=== PATIENT | female | born 1960 | race Caucasian/White ===

== ENCOUNTER → 2019-02-27 | Outpatient (CLI) | payer OTHER ==
--- NOTE | 2019-02-27 13:18 | Diagnostic Imaging Report ---
PROCEDURE: CT abdomen and pelvis without contrast. TECHNIQUE: Multiple contiguous axial images were obtained through the abdomen and pelvis without the use of intravenous contrast. Auto Exposure Controls were utilized during the CT exam to meet ALARA standards for radiation dose reduction. INDICATION: Hematuria. COMPARISON: No comparison is available. FINDINGS: Limited views of the lower thorax are normal. The liver is normal without focal lesion. The gallbladder contains stones. No cholecystitis. The pancreas is normal. There are calcified granulomas in the spleen. The adrenal glands are normal. No right-sided renal stones. No hydronephrosis. There is a 14 mm renal pelvic stone on the left. No hydronephrosis. There is some mild peripelvic stranding on the left. The urinary bladder is normal. No pelvic mass is seen. There are no dilated loops of large or small bowel. The appendix has likely been resected. No abdominal or pelvic lymphadenopathy. The abdominal aorta is normal in caliber. There are no suspicious osseous lesions. IMPRESSION: Nonobstructing 14 mm left renal pelvic stone. Mild stranding about the renal pelvis on the left may reflect some inflammation related to the stone but there is no hydronephrosis. Dictated by: Dictated on workstation # [id number]
== END ==
LOC: RAD 09:00
PROVIDERS: ATTEND Urology
DX: N20.0 Calculus of kidney (principal)
CPT/HCPCS: 74176

== ENCOUNTER 2019-03-15 05:36 | Outpatient (CLI) | payer OTHER ==
[~2019-03-15] VITALS: Ht 172.7 cm; Wt 81.2 kg
[2019-03-15] MEDS ORDERED: METO-395 PO (14:56)
[2019-03-15] MEDS ORDERED: METF-399 PO (14:56)
[2019-03-15] MEDS ORDERED: ASPI-586 PO (14:56)
[2019-03-15] MEDS ORDERED: ATOR10TA66 PO (14:56)
[2019-03-15] MEDS ORDERED: CITA10TA12 PO (14:56)
== END 2019-03-15 15:03 | disposition home or self-care (01) ==
LOC: PREOP 05:36
PROVIDERS: ATTEND Urology
DX: Z01.818 Encounter for other preprocedural examination (principal)

== ENCOUNTER 2019-03-27 06:01 | Day surgery (SDC) | payer OTHER ==
[2019-03-27] VITALS (11 sets, daily range): BP systolic 113–152; BP diastolic 61–93
[~2019-03-27] VITALS: Ht 172.7 cm; Wt 81.3 kg
[~2019-03-27 06:01] MED LIST: ASPI-586 PO; ATOR10TA66 PO; CITA10TA12 PO; METF-399 PO; METO-395 PO
[2019-03-27] MEDS ORDERED: LIDOCAINE PF 2% 5 ML (XYLOCAINE) VIAL ONE (06:33)
[2019-03-27] MEDS ORDERED: proPOfol 200 MG/20 ML (DIPRIVAN) VIAL IV ONE (06:33)
[2019-03-27] MEDS ORDERED: MIDAZOLAM 2 MG/2 ML (VERSED) VIAL ONE (06:33)
[2019-03-27] MEDS ORDERED: fentaNYL INJECTION 100 MCG/2 ML AMP ONE (06:33)
[2019-03-27] MEDS ORDERED: ONDANSETRON 4 MG/2 ML (SDV) Z0FRAN ONE (06:33)
[2019-03-27] MEDS ORDERED: SEVOFLURANE (ULTANE) 15 ML INHAL SOLN ONE ×3 (06:33→08:04)
[2019-03-27] MEDS ORDERED: LACTATED RINGERS 1,000 ML IV PRN (06:35)
[2019-03-27] MEDS ORDERED: FUROSEMIDE 40 MG/4 ML INJ (LASIX) ONE (06:37)
[2019-03-27] MEDS ORDERED: KETOROLAC 30 MG/ML VIAL ONE (06:37)
[2019-03-27] MEDS ORDERED: cefTRIAXone FOR IV USE 1,000 MG in WATER (STERILE) FOR INJECTION 10 ML IV ONE (06:45)
--- NOTE | 2019-03-27 07:11 | Progress Note-Pre Operative ---
Pre-Operative Progress Note H&P Reviewed The H&P was reviewed, patient examined and no changes noted. Date Seen by Provider: Mar 27, 2019 Time Seen by Provider: 07:11 Date H&P Reviewed: Mar 27, 2019 Time H&P Reviewed: 07:11 Pre-Operative Diagnosis: LT RENAL STONE DIANA HOUSE MD Mar 27, 2019 07:11
--- NOTE | 2019-03-27 07:34 | Discharge Inst-Urology ---
Discharge Inst-Urology Reconcile Patient Problems Problems Reviewed?: Yes Patient Instructions/Follow Up Plan/Assessment/Instructions Please make appointment to been seen in office Monday 04/09, KUB prior to it. KUB on way home Post ESWL instructions Increase oral fluids for 48 hours and then as needed. Diet and Activity as tolerated. If questions or concerns contact your physician Or seek help at emergency department. DIANA HOUSE MD Mar 27, 2019 07:34
--- NOTE | 2019-03-27 07:35 | Progress Note-Post Operative ---
Post-Operative Progess Note Surgeon (s)/Cash Control Specialist (s) Surgeon DIANA HOUSE MD Cash Control Specialist: NONE Pre-Operative Diagnosis LT RENAL STONE Post-Operative Diagnosis SAME Procedure & Operative Findings Date of Procedure 03/27/19 Procedure Performed/Findings LT ESWL Anesthesia Type GENERAL Estimated Blood Loss Estimated blood loss (mL): NONE Specimens/Packing Specimens Removed NONE Packing: NONE DIANA HOUSE MD Mar 27, 2019 07:35
[2019-03-27] MEDS ORDERED: morphine INJ 10 MG/ML 1ML (SYR OR VIAL) IVP ONE (08:15)
[2019-03-27] MEDS ORDERED: MEPERIDINE (DEMEROL) INJ 50 MG/ML IVP ONE (08:15)
[2019-03-27] MEDS ORDERED: ONDANSETRON 4 MG/2 ML (SDV) Z0FRAN IVP PRN (08:15)
--- NOTE | 2019-03-27 08:39 | OPERATIVE REPORT ---
DATE OF SERVICE: 03/27/2019 PREOPERATIVE DIAGNOSIS: Left renal stone. POSTOPERATIVE DIAGNOSIS: Left renal stone. OPERATION PERFORMED: Left ESWL. SURGEON: Dino House MD ANESTHESIA: General. COMPLICATIONS: None. DESCRIPTION OF PROCEDURE: Under satisfactory general anesthesia, the patient in supine position on the ESWL table, the left renal stone was localized. Shocks were delivered at kV of 5. A total of 3000 shocks were delivered. The patient received 40 mg of Lasix, 30 mg of Toradol IV at the end of the procedure. She tolerated the procedure and anesthesia well and was sent to recovery room in stable condition. Job ID: [id number] DocumentID: [id number] Dictated Date: 03/27/2019 07:58:57 Commissary Helper Date: 03/27/2019 08:38:19 Dictated By: DINO HOUSE MD
--- NOTE | 2019-03-27 08:51 | Diagnostic Imaging Report ---
INDICATION: Nephrolithiasis. FINDINGS: Bowel gas pattern is nonspecific. There is large stone projecting over the left kidney. The osseous structures are unremarkable. IMPRESSION: Large stone measuring greater than a centimeter projected over the left kidney. Dictated by: Dictated on workstation # [id number]
[2019-03-27] MEDS ORDERED: NITR-65 PO (09:43)
[2019-03-27] MEDS ORDERED: HYDR-3870 PO (09:43)
[2019-03-27] MEDS ORDERED: TAMS0.4C98 PO (09:43)
--- NOTE | 2019-03-27 11:15 | Diagnostic Imaging Report ---
Indication: Status post left lithotripsy. Time of exam 10:04 AM Correlation is made with prior radiograph earlier the same day. There appears to be some fragmentation of the large stone in the region of the left renal pelvis since earlier today, status post lithotripsy. No definite calculi along the expected location of the left ureter is seen. No right-sided urinary tract calculi are seen. The bowel gas pattern is unremarkable. Impression: Fragmentation of left renal calculus, status post lithotripsy. Dictated by: Dictated on workstation # [id number]
--- NOTE | 2019-03-27 13:41 | Anesthesia-General Post-Op ---
General Patient Condition Mental Status/LOC: Same as Preop Cardiovascular: Satisfactory Nausea/Vomiting: Absent Respiratory: Satisfactory Pain: Controlled Complications: Absent Post Op Complications Complications None Follow Up Care/Instructions Patient Instructions None needed. Anesthesia/Patient Condition Patient Condition Patient is doing well, no complaints, stable vital signs, no apparent adverse anesthesia problems. No complications reported per nursing. SREEKANTH RANGEL CRNA Mar 27, 2019 13:41
== END 2019-03-27 10:20 | disposition home or self-care (01) ==
LOC: SDC 06:01
PROVIDERS: ATTEND Urology
DX: N20.0 Calculus of kidney (principal); E78.5 Hyperlipidemia, unspecified; I10 Essential (primary) hypertension; E11.9 Type 2 diabetes mellitus without complications; F41.8 Other specified anxiety disorders; Z86.73 Personal history of transient ischemic attack (TIA), and cerebral infarction without residual deficits; Z88.2 Allergy status to sulfonamides; Z79.891 Long term (current) use of opiate analgesic; Z79.84 Long term (current) use of oral hypoglycemic drugs; Z79.899 Other long term (current) drug therapy
CPT/HCPCS: 74018; 87081

== ENCOUNTER → 2019-04-09 | Outpatient (CLI) | payer OTHER ==
[~2019-04-09] MED LIST changes: +HYDR-3870 PO; +NITR-65 PO; +TAMS0.4C98 PO
--- NOTE | 2019-04-09 15:16 | Diagnostic Imaging Report ---
INDICATION: Followup left sided lithotripsy. TIME OF EXAMINATION: 2:48 PM. COMPARISON: 03/27/2019. FINDINGS: Vague calcific densities overlie the left mid and lower pole. The overall stone burden overlying the left kidney appears to be reduced since the prior study. There are some questionable densities adjacent to the left transverse processes of L3 and L4. The possibility of ureteral calculi cannot be entirely excluded. No other suspicious abnormalities are seen. The bowel gas pattern is unremarkable. IMPRESSION: Decrease in the left renal stone burden since the prior abdominal radiograph 2 weeks earlier. There are questionable mid left ureteric calculi. No other abnormality is seen. Dictated by: Dictated on workstation # [id number]
== END ==
LOC: RAD 14:27
PROVIDERS: ATTEND Urology
DX: N20.0 Calculus of kidney (principal); Z98.890 Other specified postprocedural states
CPT/HCPCS: 74018

== ENCOUNTER 2019-04-14 08:31 | Outpatient (RCR) | payer OTHER | END 2019-07-08 | disposition home or self-care (01) | LOC: LAB 08:31 | PROVIDERS: ATTEND Urology | DX: N20.0 Calculus of kidney (principal) | CPT/HCPCS: 36415; 82140; 82340; 82507; 82570; 83735; 83945; 83986; 84105; 84133; 84300; 84392; 84560; 88300 ==

== ENCOUNTER → 2020-05-07 | Outpatient (CLI) | payer BC, OTHER ==
[~2020-05-07] MED LIST changes: -METO-395 PO; +MTP100TCR PO; -TAMS0.4C98 PO; +TMSL.4C PO
--- NOTE | 2020-05-07 18:12 | Diagnostic Imaging Report ---
INDICATION: History of stones. COMPARISON: 04/09/2019. TECHNIQUE: Single radiograph of the abdomen dated May 07, 2020. FINDINGS: A 4 mm calcification is noted immediately adjacent, and possibly even associated with, the tip of the left L3 transverse process. This appears stable from the prior examination. New calcifications are identified within the left aspect of the pelvis, measuring up to 7 mm. No suspicious calcification overlying the left renal shadow with possible punctate calcification overlying the central right renal shadow. Stool is identified throughout the colon. No evidence of bowel obstruction. No free air. No acute osseous abnormality. IMPRESSION: 1. 4 mm calcification adjacent to the tip of the left L3 transverse process is again identified and stable from prior examination one year prior. This is favored to simply relate to the transverse process, itself, though ureterolith is not excluded. 2. New 7 mm calcifications within the left pelvis. This is favored to relate to phleboliths, though given location, these could relate to underlying distal ureterolithiasis. CT could be obtained for further evaluation. Alternatively, ultrasound could be obtained to evaluate for any underlying hydronephrosis. 3. Probable punctate right renal calculus. Dictated by: Dictated on workstation # [id number]
== END ==
LOC: RAD 16:36
PROVIDERS: ATTEND Urology
DX: Z87.442 Personal history of urinary calculi (principal)
CPT/HCPCS: 74018

== ENCOUNTER → 2020-05-14 | Outpatient (CLI) | payer BC ==
[~2020-05-14] MED LIST changes: +ASPI-999 PO; +GLIP5TAB13 PO
--- NOTE | 2020-05-14 13:17 | Diagnostic Imaging Report ---
PROCEDURE: CT urinary tract, rule out kidney stone. TECHNIQUE: Multiple contiguous axial images were obtained through the abdomen and pelvis without the use of intravenous contrast. Auto Exposure Controls were utilized during the CT exam to meet ALARA standards for radiation dose reduction. INDICATION: Abdominal pain and history of kidney stones. COMPARISON: Correlation is made with prior CT from 02/27/2019 as well as KUB from 05/07/2020. FINDINGS: The lung bases are clear. No discrete liver mass is identified. There is a stone within the gallbladder. No biliary ductal dilatation is seen. The pancreas and spleen are unremarkable. No adrenal mass is identified. Right kidney is without evidence of calculi. There is no hydronephrosis or ureteral calculi on the right. On the left, there is moderate hydroureteronephrosis. The dilated left ureter is traced into the pelvis where there is an approximately 5 mm calculus projecting just distal to the SI joints. The ureter distal to this location is normal caliber. No bladder calculi are seen. Aorta is non-aneurysmal. Bowel loops are normal caliber. There is no ascites. Uterus is unremarkable. IMPRESSION: 1. Cholelithiasis. 2. 5 mm distal left ureteric calculus producing moderate hydroureteronephrosis. No other urinary tract calculi are identified. Dictated by: Dictated on workstation # [id number]
== END ==
LOC: RAD 13:15
PROVIDERS: ATTEND Urology
DX: N20.1 Calculus of ureter (principal); K80.20 Calculus of gallbladder without cholecystitis without obstruction
CPT/HCPCS: 74176

== ENCOUNTER → 2020-05-19 | Outpatient (CLI) | payer BC ==
[~2020-05-19] MED LIST changes: +PHEN-640 PO; +TRM50T PO
--- NOTE | 2020-05-19 14:24 | Diagnostic Imaging Report ---
INDICATION: Nephrolithiasis. EXAMINATION: KUB at 01:28 p.m. FINDINGS: 7 mm calculus projecting over the left upper pelvis. This is unchanged from 05/07/2020. No other pathologic calcifications seen. IMPRESSION: Distal left ureteral calculus unchanged from 05/07/2020. Dictated by: Dictated on workstation # [id number]
== END ==
LOC: RAD 13:12
PROVIDERS: ATTEND Urology
DX: N20.1 Calculus of ureter (principal)
CPT/HCPCS: 74018

== ENCOUNTER 2020-05-20 06:43 | Day surgery (SDC) | payer BC ==
[2020-05-20] VITALS (11 sets, daily range): BP systolic 111–148; BP diastolic 61–85
[~2020-05-20] VITALS: Ht 172 cm; Wt 81.0 kg
[~2020-05-20 06:43] MED LIST changes: -PHEN-640 PO; -TRM50T PO
--- NOTE | 2020-05-20 07:05 | Progress Note-Pre Operative ---
Pre-Operative Progress Note H&P Reviewed The H&P was reviewed, patient examined and no changes noted. Date Seen by Provider: May 20, 2020 Time Seen by Provider: 07:05 Date H&P Reviewed: May 20, 2020 Time H&P Reviewed: 07:05 Pre-Operative Diagnosis: LT DISTAL URETERAL STONE DIANA HOUSE MD May 20, 2020 07:05
[2020-05-20] MEDS ORDERED: CATHETER FLUSH 10 ML SYR IV PRN (07:15)
[2020-05-20] MEDS ORDERED: cefTRIAXone FOR IV USE 1,000 MG in WATER (STERILE) FOR INJECTION 10 ML IV ONE (07:15)
[2020-05-20] MEDS: LACTATED RINGERS 1,000 ML IV PRN ×2 (07:51→08:56)
[2020-05-20] MEDS ORDERED: MIDAZOLAM 2 MG/2 ML (VERSED) VIAL ONE (07:57)
[2020-05-20] MEDS ORDERED: fentaNYL INJECTION 100 MCG/2 ML AMP ONE (07:58)
[2020-05-20] MEDS ORDERED: SEVOFLURANE (ULTANE) 15 ML INHAL SOLN ONE (08:02)
[2020-05-20] MEDS ORDERED: LIDOCAINE PF 2% 5 ML (XYLOCAINE) VIAL ONE (08:02)
[2020-05-20] MEDS ORDERED: proPOfol 200 MG/20 ML (DIPRIVAN) VIAL IV ONE (08:02)
[2020-05-20] MEDS ORDERED: ONDANSETRON 4 MG/2 ML (SDV) Z0FRAN ONE (08:02)
--- NOTE | 2020-05-20 08:08 | Diagnostic Imaging Report ---
EXAMINATION: Abdomen 1 view HISTORY: Preoperative evaluation, left ureteral stone COMPARISON: Abdominal radiograph 05/19/2020 FINDINGS: There is moderate amount of gas and stool throughout the colon. Nonobstructive bowel gas pattern. There is a 0.7 cm calcification within the left pelvis, unchanged from 05/19/2020. The osseous structures are intact. IMPRESSION: Unchanged 0.7 cm calcification overlying the left pelvis. Dictated by: Dictated on workstation # [id number]
[2020-05-20] MEDS ORDERED: ROCURONIUM 10 MG/ML 5 ML SYRINGE IV ONE (08:25)
--- NOTE | 2020-05-20 09:14 | Progress Note-Post Operative ---
Post-Operative Progess Note Surgeon (s)/Respiratory Therapy Director (s) Surgeon DIANA HOUSE MD Respiratory Therapy Director: NONE Pre-Operative Diagnosis LT DISTAL URETERAL STONE Post-Operative Diagnosis SAME Procedure & Operative Findings Date of Procedure 05/20/20 Procedure Performed/Findings URETEROSPY WITH STONE LITHOTRIPSY Anesthesia Type GENERAL Estimated Blood Loss Estimated blood loss (mL): NONE Specimens/Packing Specimens Removed NONE Packing: NONE DIANA HOUSE MD May 20, 2020 09:14
[2020-05-20] MEDS ORDERED: morphine INJ 10 MG/ML 1ML (SYR OR VIAL) IVP ONE (09:15)
[2020-05-20] MEDS ORDERED: ONDANSETRON 4 MG/2 ML (SDV) Z0FRAN IVP PRN (09:15)
[2020-05-20] MEDS ORDERED: fentaNYL INJECTION 100 MCG/2 ML AMP IVP ONE (09:15)
[2020-05-20] MEDS ORDERED: MEPERIDINE (DEMEROL) INJ 50 MG/ML IVP ONE (09:15)
--- NOTE | 2020-05-20 09:15 | Discharge Inst-Urology ---
Discharge Inst-Urology Reconcile Patient Problems Problems Reviewed?: Yes Final Diagnosis LT DISTAL URETERAL STONE Patient Instructions/Follow Up Plan/Assessment/Instructions Please make appointment to been seen in office in 2 weeks. Increase oral fluids for 48 hours and then as needed. Diet and Activity as tolerated. If questions or concerns contact your physician Or seek help at emergency department. DIANA HOUSE MD May 20, 2020 09:15
[2020-05-20] MEDS ORDERED: TMSL.4C PO (10:11)
[2020-05-20] MEDS ORDERED: TRM50T PO (10:11)
[2020-05-20] MEDS ORDERED: NITR-65 PO (10:11)
[2020-05-20] MEDS ORDERED: PHEN-640 PO (10:11)
--- NOTE | 2020-05-20 10:34 | Anesthesia-General Post-Op ---
General Patient Condition Mental Status/LOC: Same as Preop Cardiovascular: Satisfactory Nausea/Vomiting: Absent Respiratory: Satisfactory Pain: Controlled Complications: Absent Post Op Complications Complications None Follow Up Care/Instructions Patient Instructions None needed. Anesthesia/Patient Condition Patient Condition Patient is doing well, no complaints, stable vital signs, no apparent adverse anesthesia problems. No complications reported per nursing. LOREN SKAGGS CRNA May 20, 2020 10:34
--- NOTE | 2020-05-20 12:36 | OPERATIVE REPORT ---
DATE OF SERVICE: 05/20/2020 PREOPERATIVE DIAGNOSIS: Left distal ureteral stone. POSTOPERATIVE DIAGNOSIS: Left distal ureteral stone. OPERATIONS PERFORMED: Left ureteroscopy with stone lithotripsy. SURGEON: Dino House MD. ANESTHESIA: General. COMPLICATIONS: None. DESCRIPTION OF PROCEDURE: Under satisfactory general anesthesia, the patient in lithotomy position, the genitalia were prepped and draped in the usual sterile fashion. Cystoscope was introduced under vision. The bladder was essentially normal except for sluggish efflux on the left side. Using the foroblique lens, I dilated the left ureteral orifice intramural portion to accommodate a 6.9 Sinhala semi-rigid ureteroscope. I visualized the stone and it was impacted in the ureter. I started breaking it up and then it was disimpacted from the wall of the ureter. I broke it into very small fragments. There were no further fragments. No further stone proximally or distally all the way up to the junction of the mid and proximal ureter. I removed the ureteroscope and reinserted the cystoscope into the bladder. The patient tolerated the procedure and anesthesia well and was sent to recovery room in a stable condition. Job ID: [id number] DocumentID: [id number] Dictated Date: 05/20/2020 09:17:39 Automatic Profile Shaper Operator Date: 05/20/2020 12:35:31 Dictated By: DINO HOUSE MD
== END 2020-05-20 11:20 | disposition home or self-care (01) ==
LOC: SDC 06:43
PROVIDERS: ATTEND Urology
DX: N20.1 Calculus of ureter (principal); E11.9 Type 2 diabetes mellitus without complications; I10 Essential (primary) hypertension; Z88.2 Allergy status to sulfonamides; Z86.73 Personal history of transient ischemic attack (TIA), and cerebral infarction without residual deficits; Z79.84 Long term (current) use of oral hypoglycemic drugs; Z79.82 Long term (current) use of aspirin; Z79.899 Other long term (current) drug therapy; Z11.2 Encounter for screening for other bacterial diseases; Z20.828 Contact with and (suspected) exposure to other viral communicable diseases
CPT/HCPCS: 52353; 74018; 76000; 82962; 84703; 87081; U0002; 87635

== ENCOUNTER → 2021-05-06 | Outpatient (CLI) | payer BC ==
[~2021-05-06] MED LIST changes: +PHEN-640 PO; +TRM50T PO
--- NOTE | 2021-05-06 17:53 | Diagnostic Imaging Report ---
EXAMINATION: Abdomen 1 view. HISTORY: HISTORY OF KIDNEY STONES. COMPARISON: 05/20/2020. FINDINGS: Previously seen calcification in the left pelvis is no longer apparent. There is a new 5 mm calcification in the left lower pelvis. Bowel gas pattern is normal. Rounded calcification projecting over the upper pole of the right kidney may be a gallbladder stone or calcified cyst. IMPRESSION: Left lower pelvis calcification is no longer apparent but there is a new calcification more inferiorly in the pelvis measuring 6 mm. Dictated by: Dictated on workstation # [id number]
== END ==
LOC: RAD 17:15
PROVIDERS: ATTEND Urology
DX: N28.89 Other specified disorders of kidney and ureter (principal); Z87.442 Personal history of urinary calculi
CPT/HCPCS: 74018

== ENCOUNTER → 2021-09-21 | Outpatient (CLI) | payer BC | END | disposition home or self-care (01) | LOC: PREOP 05:34 | PROVIDERS: ATTEND Urology | DX: Z01.818 Encounter for other preprocedural examination (principal) ==